=== PATIENT | male | born 1955 | race Two or more races ===

== ENCOUNTER 2016-06-23 07:19 | Day surgery (SDC) | payer BC ==
--- NOTE | 2016-06-09 07:58 | HP ---
PREOP HISTORY AND PHYSICAL: DATE OF SURGERY: 06/23/16 DATE OF OFFICE VISIT: 06/08/16 ATTENDING SURGEON: Dr. Mak Lo. (DICTATED BY JONATHAN VILLANUEVA) PROCEDURE: Left shoulder arthroscopic rotator cuff repair decompression, debridement, and excision of the distal clavicle. CHIEF COMPLAINT: Left shoulder pain. HISTORY OF PRESENT ILLNESS: Mr. Agudelo is a 61-year-old male who presented to the clinic with left shoulder pain due to left shoulder rotator cuff tear and AC joint arthritis. The patient has failed conservative measures and has therefore agreed to undergo a left shoulder arthroscopic rotator cuff repair, decompression, debridement, and excision of the distal clavicle with Dr. Lo on 06/23/16. PAST MEDICAL HISTORY: Hypertension, diabetes, seasonal allergies, and arthritis. PAST SURGICAL HISTORY: He denies previous surgery. MEDICATIONS: 1. Zolpidem tartrate 10 mg 1 by mouth every night as needed. 2. Omeprazole 10 mg 1 by mouth every day. 3. Amlodipine besylate 10 mg 1 by mouth every day. 4. Hydrochlorothiazide 25 mg 1 by mouth every day. 5. Glyburide 5 mg 1 by mouth every day. 6. Metformin 500 mg 1 by mouth twice a day. 7. Enalapril 20 mg 1 by mouth every day. 8. Naproxen 500 mg 1 tab with food by mouth twice a day. 9. Potassium chloride 10 mEq 1 by mouth every day. 10. Simvastatin 20 mg 1 by mouth every day. 11. Zyrtec allergy 1 by mouth as needed. 12. Tylenol 8 hr Arthritis 650 mg 2 by mouth as needed. 13. Metamucil as needed. ALLERGIES: LYRICA. FAMILY HISTORY: Father with stroke and paternal grandmother with stroke. SOCIAL HISTORY: He lives with his . He works as a business systems architect. He denies tobacco or alcohol use. REVIEW OF SYSTEMS: General: Negative for fever, chills, or night sweats. HEENT: Negative for headache, lightheadedness, or syncopal episodes. Integumentary: Negative for abrasions, lesions, or open wounds. Cardiothoracic : Negative for chest pain, palpitations, or edema. Positive for hypertension. Pulmonary: Negative for shortness of breath with exertion, chronic cough, or COPD. GI: Positive for constipation and intermittent GERD. He denies nausea or vomiting. : Negative for nocturia, urinary frequency, history of UTIs, or kidney problems. Musculoskeletal: Positive for current complaint. Neuro: Negative for paresthesias, numbness, history of seizure, stroke, or epilepsy. Endocrine: Positive for diabetes. Negative for thyroid issues. Heme: Negative for easy bruising, bleeding disorder, history of DVT or PE. Infectious disease: Negative for history of MRSA, hep C, or HIV. PHYSICAL EXAMINATION GENERAL: Well-developed, well-nourished 61-year-old male, in no acute distress. Alert and oriented x3. Appropriate mood and affect. VITAL SIGNS: Height 70, weight 292, pulse 92, blood pressure 147/82, respiratory rate 24, temperature 97.5, BMI 41.9. HEENT: Normocephalic, atraumatic. PERRLA. Throat clear. NECK: Supple. PULMONARY: Lungs are clear to auscultation bilaterally. No wheezes, rhonchi, or rales. CARDIO: Regular rate and rhythm. S1, S2. No murmurs, gallops, or rubs. No edema. ABDOMEN: Positive bowel sounds. Soft, nontender. MUSCULOSKELETAL: Left upper extremity, skin is intact. Tenderness to palpation over the proximal biceps, AC joint, subacromial space. No warmth or erythema. Forward flexion to 110. Abduction to 140. External rotation to 45 and internal rotation to the posterior iliac spine. +4/5 strength and weakness to supraspinatus, infraspinatus, belly press, and bear hug. Positive Neer's, Speed's, Mckeon-Vinh, and [place]'s. +2 radial pulse. Sensation intact to light touch distally. NEURO: Alert and oriented x3. Cranial nerves grossly intact. Sensation intact to light touch. DIAGNOSTIC STUDIES: MRI of the shoulder revealed high-grade partial-thickness tear of the supraspinatus tendon, paralabral cyst in the posterior labrum, AC joint arthritis, and inflammation in the bicipital groove. IMPRESSION: Left shoulder rotator cuff tear, AC joint arthritis, and biceps tendinitis. PLAN: The patient is scheduled to undergo a left shoulder arthroscopic rotator cuff repair, decompression debridement, and excision distal clavicle. He has been cleared by his PCP. He has also been cleared by Dr. Ansari for surgery. He will return to the office 10 to 14 days postop for followup and suture removal. Percocet will be used for postoperative pain management. JONATHAN VILLANUEVA [id number]/[facility] #: [id number] MTDD
[~2016-06-23 07:19] MED LIST: Buffered Lidocaine 1% SYR 3ML* 3 ML/SYR SYRINGE INTRADERM ONE; Dexamethasone IV* 4 MG/ML 1 ML (4 MG) IV SLOW PU ONE; Dexamethasone IV* 4 MG/ML 1 ML (4 MG) ONE; Famotidine IV* 10 MG/ML 2 ML (20 mg) IV ONE; Famotidine IV* 10 MG/ML 2 ML (20 mg) ONE; ceFAZolin 1 GM in Dextrose (*) 1 GM/50 ML BAG IVPB ONE; ceFAZolin 2 GM PREMIX(*) 2 GM/50 ML BAG IVPB ONE
[2016-06-23] MEDS ORDERED: Bupivacaine 0.5% W/EPI SDV* 30 ML VIAL ONE (08:02)
[2016-06-23] MEDS ORDERED: Midazolam* 1 MG/ML 5 ML VIAL (5 MG) ONE (08:03)
[2016-06-23] MEDS ORDERED: Ondansetron INJ* 2 MG/ML VIAL ONE (08:03)
[2016-06-23] MEDS ORDERED: fentaNYL* 50 MCG/ML 2 ML VIAL (100 MCG VIAL) ONE ×3 (08:03→12:48)
[2016-06-23] MEDS ORDERED: Lidocaine 2% PF * 5 ML VIAL ONE (08:03)
[2016-06-23] MEDS ORDERED: Propofol* 10 MG/ML 20 ML BTL IV PUSH ONE (08:03)
[2016-06-23] MEDS ORDERED: HYDROmorphone* 1 MG/ML 1 ML SYR ONE ×3 (08:03→11:01)
[2016-06-23] MEDS ORDERED: fentaNYL* 50 MCG/ML 2 ML VIAL (100 MCG VIAL) IV PRN (08:19)
[2016-06-23] MEDS ORDERED: HYDROmorphone* 1 MG/ML 1 ML SYR IV PRN (08:19)
[2016-06-23] MEDS ORDERED: PROCHLORPERAZINE INJ 5 MG/ML 2 ML VIAL IV PRN (08:19)
[2016-06-23] MEDS ORDERED: DiMENhydriNATE IV* 50 MG/ML VIAL IV PUSH PRN (08:19)
[2016-06-23] MEDS ORDERED: Ondansetron INJ* 2 MG/ML VIAL IV PRN (08:19)
[2016-06-23] MEDS ORDERED: Scopolamine 1.5 mg* PATCH TRANSDERM PRN (08:19)
[2016-06-23] MEDS ORDERED: Meperidine SYRINGE* 50 MG/ML ONE (09:58)
[2016-06-23] MEDS ORDERED: Insulin REGULAR(*) 1 UNITS UNIT ONE ×2 (11:52→13:10)
[2016-06-23] MEDS ORDERED: Insulin REGULAR(*) 1 UNITS UNIT SUBCUT ONE (11:53)
[2016-06-23] MEDS ORDERED: oxyCODONE/Acetamin 5/325 MG* TAB ONE (12:48)
[2016-06-23 13:12] VITALS: BP 130/78
--- NOTE | 2016-06-24 14:50 | OP ---
CC: PCP OPERATIVE REPORT: DATE OF OPERATION: 06/23/16 DATE OF : 59 SURGEON: Mak Lo MD SHIP'S CARPENTER: JONATHAN Ferguson An assistant softball coach was needed for this case to help with positioning, retraction, and closure and was util ized throughout all portions. ANESTHESIOLOGIST: Dr. Anam Basurto. ANESTHESIA: General interscalene block. PRE-OP DIAGNOSIS: Left shoulder full thickness rotator cuff tear, biceps tendonitis as well as acro mioclavicular joint arthritis. POST-OP DIAGNOSIS: Left shoulder full thickness rotator cuff tear, biceps tendonitis as well as acr omioclavicular joint arthritis. OPERATIVE PROCEDURE: 1. Left shoulder arthroscopy with extensive glenohumeral debridement including biceps tenotomy. 2. Subacromial decompression with acromioplasty. 3. Distal clavicle excision. 4. Rotator cuff repair, double row fashion. ESTIMATED BLOOD LOSS: Minimal. COMPLICATIONS: None. IMPLANTS: Two 4.75 Healicoils and one multifix anchor. INDICATIONS: Cristhian Agudelo is a 61-year-old male who has had persistent shoulder pain for a long emely od of time. He previously saw surgeons at other facilities who diagnosed him with neck issues. He does have a component of cervicalgia, but he did have a rotator cuff tear that was symptomatic. Aft er an extensive discussion of the risks and benefits of surgical versus nonoperative treatment, he e lected to proceed with surgery. Risks included but are not limited to bleeding, infection, damage t o nerves, vessels, surrounding structures, wound nonhealing, persistent pain, need for further surge ry, scarring, persistent pain, failure of the repair, risk of anesthesia, risk of DVT as well as sca rring and stiffness. He is elected to proceed. DESCRIPTION OF PROCEDURE: The patient was greeted in the preoperative area by the attending surgeon . Correct extremity was marked. Consent was confirmed. The patient then underwent interscalene ne rve block by the anesthesiologist after which the patient was brought back to operative suite and wa s placed in supine position on the operating table. He underwent general anesthesia with LMA intuba tion after which the patient was then placed in the right lateral decubitus position with axillary r olls. All bony prominences were padded. He was secured with a pegboard. The left shoulder was drap ed unsterile with about 14 pounds of traction due to his size. All bony prominences were padded. T he left shoulder was then prepped and draped in the usual sterile fashion beginning with chlorhexidi ne soap scrub, alcohol wipe, and final prep with ChloraPrep. After appropriate surgical pause indicating side, site of procedure, administration of antibiotics, a standard posterolateral portal was made sharply with an 11 blade. The scope was introduced into th e joint. The joint was examined and found to have grade 0 to 1 changes of the glenoid and humeral h ead. The inferior, superior, posterior labrum all had unstable fraying. The biceps was subluxed so mewhat anteriorly with tendonitis and tendinopathy. An anterior portal was made in an outside-in fa shion. The biceps was then sharply tenotomized due to superior labral tearing as well as the instab ility and tendonitis. The stump was then debrided back. The undersurface of the rotator cuff was i dentified and there was a full thickness tear that was evident. The shaver was then used to debride it back. Subscapularis was identified and found to be clearly intact without any tearing. Anterior, posterior, superior labrum was then debrided back. Once the debridement was complete, attention wa s directed to subacromial space. The scope was introduced in the subacromial space. A lateral port al was made in an outside-in fashion and there was abundant bursa evident. This was removed careful ly using the shaving device. The undersurface of the acromion was then identified and skeletonized using electrocautery device, which revealed an anterolateral spur. This was then debrided down using a 4-0 oval felipe. Once the acromioplasty was complete, it was carried on to the distal clavicle are a. The inferior aspect of the distal clavicle was also debrided using 4-0 oval felipe. All fluid and debris were removed. At this point, attention was directed to the distal clavicle, which appeared to be very stenotic and arthritic. A 4-0 felipe was brought through anteriorly. Distal clavicle excision was then done with visualization using a 30 and 70-degree scope. Once at least 8 mm of the clavicle was removed, the j oint space was probed to make there was not any bony fragments, the clavicle was manipulated to make sure there is no areas of impingement. All loose debris and fluid were removed and attention was d irected to the rotator cuff. At this point, there was a full thickness bursal- sided tear as well a s high-grade partial bursal-sided tearing that was evident anterosuperiorly. The shaver was used to debride back the unstable fragments. The electrocautery device was used to repair the greater tube rosity as well as the rasp and shaver. Once the bony footprint was prepared, two 4.75 Healicoil anc hors were placed through separate stab incisions into the medial row. The sutures were passed in a horizontal mattress configuration. These were then tied down with good fit. One limb of each michele ed suture was then passed through a multifix anchor which was used to secure as a lateral row. Ave l images were obtained. All fluid and debris was removed from the shoulder. The portals were close d with 3-0 nylon. Sterile dressings were applied. A Cryo/Cuff as well as an UltraSling was placed. He was then awoken from anesthesia and transferred to PACU in stable condition. POSTOPERATIVE PLAN: He will be nonweightbearing and in a sling for 6 weeks. He will be allowed to work on elbow, wrist, and hand range of motion. He will be discharged on pain medication as well as antibiotic. DVT prophylaxis was considered but deferred due to no previous personal or family hist ory. I will see the patient back in 10 to 14 days. [id number]/[facility] #: [id number]
[2016-06-26] MEDS ORDERED: Scopolomine PATCH Remove* 1 NOTE MISC PATCH OFF ONE (08:19)
== END 2016-06-23 13:55 | disposition home or self-care (01) ==
LOC: OR 07:19
PROVIDERS: ATTEND Orthopaedic Surgery
DX: M75.122 Complete rotator cuff tear or rupture of left shoulder, not specified as traumatic (principal); M75.22 Bicipital tendinitis, left shoulder; M19.012 Primary osteoarthritis, left shoulder; E11.9 Type 2 diabetes mellitus without complications; Z79.84 Long term (current) use of oral hypoglycemic drugs; I10 Essential (primary) hypertension; G47.33 Obstructive sleep apnea (adult) (pediatric); E66.01 Morbid (severe) obesity due to excess calories
CPT/HCPCS: A9270-GY; C1713; J0690; J1100; J1170; J2250; J2405; J2704; J3010

== ENCOUNTER → 2018-07-26 10:18 | Day surgery (SDC) | payer BC ==
[~2018-07-26 10:18] MED LIST changes: +Acetaminophen TAB* 325 MG PO PRN; -Buffered Lidocaine 1% SYR 3ML* 3 ML/SYR SYRINGE INTRADERM ONE; +Buffered Lidocaine 1% SYRIN* 1 ML/SYRINGE INTRADERM ONE; -Dexamethasone IV* 4 MG/ML 1 ML (4 MG) IV SLOW PU ONE; -Dexamethasone IV* 4 MG/ML 1 ML (4 MG) ONE; +DiMENhydriNATE IV* 50 MG/ML VIAL IV PUSH PRN; +Ketorolac INJ* 30 MG/ML 1 ML VIAL ONE; +Lactated Ringers 1000 ML Bag* 1,000 ML IV SCH; +Midazolam* 1 MG/ML 10 ML VIAL (10 MG) ONE; +Naloxone* 0.4 MG/ML 1 ML VIAL IV PRN; +Ondansetron INJ* 2 MG/ML VIAL ONE; +Propofol* 10 MG/ML 20 ML BTL ONE; -ceFAZolin 1 GM in Dextrose (*) 1 GM/50 ML BAG IVPB ONE; -ceFAZolin 2 GM PREMIX(*) 2 GM/50 ML BAG IVPB ONE; +fentaNYL* 50 MCG/ML 2 ML VIAL (100 MCG VIAL) ONE
[2018-07-26 14:15] VITALS: BP 132/71
--- NOTE | 2018-07-26 15:43 | PRO ---
CC: Noris Scott MD * PROCEDURE REPORT: DATE OF PROCEDURE: 07/24/18 REFERRING PROVIDER: Noris Scott MD. MEDICATIONS GIVEN: By Anesthesia. PROCEDURE PERFORMED: Colonoscopy with biopsy, polypectomy. INDICATION: The patient was seen in clinic, reported left lower quadrant pain and constipation. CT scan demonstrated sigmoid diverticulosis only in that area. The patient uses Metamucil occasionally for constipation management. Last colonoscopy was 10 to 11 years ago and the patient remembered being quite uncomfortable and awake during the procedure. Scheduled for a repeat colonoscopy for cancer screening as well as to evaluate for any explanation for the left lower quadrant abdominal discomfort. DESCRIPTION OF PROCEDURE: A full disclosure of risks was reviewed with the patient as detailed on the consent form. The patient was placed in the left lateral decubitus position and monitored with continuous pulse oximetry, capnography, interval blood pressure monitoring, and direct observation. After anorectal examination was performed, the adult colonoscope was inserted into the rectum and slowly advanced forward to the terminal ileum. Complete views of the cecum were obtained including the medial wall between the IC valve and the appendiceal orifice. Quality of the prep was fair. Photodocumentation of landmarks obtained. Careful inspection was made as the colonoscope was withdrawn. Retroflexion was performed in the rectum. Findings and interventions are described below. FINDINGS: The anorectal exam was notable for large external hemorrhoids. The scope was inserted into the rectum and slowly advanced forward. There was a fair amount of looping in the left colon, which was difficult to fully reduce with maneuvers or abdominal pressure. The scope was able to reach the cecum with a considerable amount of looping still present. The terminal ileum was intubated x10 cm. At the very distal terminal ileum, there was a semi-mobile nodule. This appears likely submucosal in nature. Biopsies obtained. The scope was then withdrawn back into the cecum and then throughout the length of the colon. In the transverse colon, there was a 3 mm polyp removed with jumbo biopsy forceps. In the sigmoid colon, there was some tortuosity as well as diverticulosis. Retroflexion of the rectum revealed small internal hemorrhoids. The scope was then withdrawn from the patient. The patient tolerated the procedure well and was recovered in the GI recovery area. IMPRESSION: 1. Complete colonoscopy to terminal ileum. 2. Terminal ileal nodule identified, biopsied. Biopsies will likely be unremarkable as I suspected that this is a submucosal nodule. 3. Small transverse colon polyp. 4. Sigmoid diverticulosis. 5. Internal hemorrhoids, small and medium to large external hemorrhoids. FOLLOWUP: 1. Await pathology. 2. Recommend high-fiber diet and continuing Metamucil as needed. 3. Can consider a trial of hydrocortisone cream on the external hemorrhoids for 1 to 2 weeks. The patient can contact the clinic if the hemorrhoids continue to bother him. 4. No source of abdominal pain identified on exam, although I do wonder if perhaps he is uncomfortable in the area of the diverticulosis. There was no evidence of diverticulitis or mass at all in this area. Reassured the patient that there were no concerning findings identified. Thank you very much for this referral. [id number]/[facility] #: [id number] IZZY
== END | disposition home or self-care (01) ==
LOC: OR 10:18
PROVIDERS: ATTEND Internal Medicine Gastroenterology
DX: K63.5 Polyp of colon (principal); K59.00 Constipation, unspecified; K64.8 Other hemorrhoids; K64.4 Residual hemorrhoidal skin tags; I10 Essential (primary) hypertension; G47.33 Obstructive sleep apnea (adult) (pediatric); E11.9 Type 2 diabetes mellitus without complications; E66.9 Obesity, unspecified; M19.90 Unspecified osteoarthritis, unspecified site; K57.90 Diverticulosis of intestine, part unspecified, without perforation or abscess without bleeding
CPT/HCPCS: 88305; J1885; J2250; J2405; J2704; J3010